=== PATIENT | female | born 1955 | race Caucasian/White ===

== ENCOUNTER → 2016-07-13 | Outpatient (CLI) | payer BC ==
[~2016-07-13] VITALS: Ht 162.6 cm; Wt 149.5 kg
[~2016-07-13] MED LIST: CALCIFEROL50000 IU PO; CALCIUM + D 5001 TAB PO; CENA K20 MEQ/15 PO; DRISDOL50000 IU PO; FERROUS FUMARA325 MG PO; FLEXERIL10 MG PO; IRON FERROUS S325 MG PO; LISINOPRIL; LORTAB 5/500 501 TAB PO; NAPROSYN PO; NO HOME MEDICATIONS; PHENTERMINE15 MG PO; POTASSIUM PO; PRILOSEC40 MG PO; PRINZIDE 12.5 M1 TA1 PO; VITAMIN D 50,1.25 MG PO; VITAMIN D1000 IU PO; VITAMIN D50000 IU PO; WELLBUTRIN SR150 M1 PO; ZOLOFT 50MG50 MG; ZOLOFT 50MG50 MG PO
== END ==
LOC: LIGHT 10:23
DX: E66.8 Other obesity (principal); E88.81 Metabolic syndrome and other insulin resistance; G47.33 Obstructive sleep apnea (adult) (pediatric); F33.8 Other recurrent depressive disorders; E66.01 Morbid (severe) obesity due to excess calories; Z68.41 Body mass index [BMI] 40.0-44.9, adult

== ENCOUNTER → 2016-08-17 | Outpatient (CLI) | payer BC ==
[~2016-08-17] VITALS: Ht 162.6 cm; Wt 145.6 kg
[2016-08-17 09:30] VITALS: BP 134/60; PULSE 57
== END ==
LOC: LIGHT 08:25
DX: E88.81 Metabolic syndrome and other insulin resistance (principal); G47.33 Obstructive sleep apnea (adult) (pediatric); F33.8 Other recurrent depressive disorders; E66.01 Morbid (severe) obesity due to excess calories; Z68.43 Body mass index [BMI] 50.0-59.9, adult

== ENCOUNTER → 2016-10-12 | Outpatient (CLI) | payer BC ==
[~2016-10-12] VITALS: Ht 162.6 cm; Wt 141.7 kg
[2016-10-12 08:40] VITALS: BP 117/67; PULSE 68
== END ==
LOC: LIGHT 08:40
DX: E88.81 Metabolic syndrome and other insulin resistance (principal); E66.01 Morbid (severe) obesity due to excess calories; Z68.43 Body mass index [BMI] 50.0-59.9, adult; Z71.3 Dietary counseling and surveillance; F33.9 Major depressive disorder, recurrent, unspecified; G47.33 Obstructive sleep apnea (adult) (pediatric)

== ENCOUNTER → 2017-02-01 | Outpatient (CLI) | payer BC ==
[~2017-02-01] VITALS: Ht 162.6 cm; Wt 144.5 kg
[~2017-02-01] MED LIST changes: +FASTIN30 MG PO; -PHENTERMINE15 MG PO
[2017-02-01 09:38] VITALS: BP 120/80; PULSE 68
== END ==
LOC: LIGHT 12-21 10:15
DX: E88.81 Metabolic syndrome and other insulin resistance (principal); G47.33 Obstructive sleep apnea (adult) (pediatric); E66.01 Morbid (severe) obesity due to excess calories; Z68.43 Body mass index [BMI] 50.0-59.9, adult; Z71.3 Dietary counseling and surveillance; F33.9 Major depressive disorder, recurrent, unspecified

== ENCOUNTER → 2017-04-02 | Outpatient (CLI) | payer BC | LOC: MC.RAD 09:30 | DX: Z12.31 Encounter for screening mammogram for malignant neoplasm of breast (principal) ==

== ENCOUNTER → 2017-06-05 | Outpatient (CLI) | payer BC | LOC: COL.RAD 10:39 | DX: R93.8 Abnormal findings on diagnostic imaging of other specified body structures (principal) ==

== ENCOUNTER 2017-07-03 08:08 | Emergency (ER) | payer BC ==
[2005-10-05 15:49] VITALS: BP 117/87
[~2017-07-03] VITALS: Ht 162.6 cm; Wt 136.8 kg
[2017-07-03] MEDS ORDERED: MOTRIN 600600 MG/TAB PO (08:28)
[2017-07-03 08:56] LABS: BASO % 0.4 % (0.0-2.0); EOS # 0.3 (0.0-0.7); EOS % 5.3 % (0-4.0); GRAN # 3.7 (1.4-6.5); GRAN % 69.2 % (42.2-75.2); LYMPH # 0.9 (1.2-3.4); LYMPH % 16.6 % (20.0-51.0); MEAN CELL VOLUME 93 fl (80.0-100.0); MEAN CORPUSCULAR HEMOGLOBIN 31 pg (27.0-31.0); MEAN CORPUSCULAR HGB CONC 33 g/dl (33.0-37.0); MEAN PLATELET VOLUME 9.3 fl (7.4-10.4); MONO # 0.4 (0.1-0.6); MONO % 7.9 % (1.7-9.3); PLATELET COUNT 246 K/mm3 (130-400); RED BLOOD COUNT 3.87 M/mm3 (4.10-5.30); REDCELL DISTRIBUTION WIDTH-CV 12.5 % (11.5-14.5)
[2017-07-03 09:00] LABS: HEMATOCRIT 35.9 % (37.0-47.0)
[2017-07-03 09:04] LABS: ALANINE AMINOTRANSFERASE 36 U/L (9-52); ALBUMIN 3.7 gm/dL (3.5-5.0); ALKALINE PHOSPHATASE 76 U/L (50-136); ANION GAP 7 mmol/L (7-16); AST,SGOT 21 U/L (15-37); BILIRUBIN,TOTAL 0.4 mg/dL (0.0-1.0); BLOOD UREA NITROGEN 10 mg/dL (7-17); CALCIUM 8.7 mg/dL (8.4-10.2); CARBON DIOXIDE 30 mmol/L (22-30); CHLORIDE 102 mmol/L (98-107); CREATININE, serum 0.71 mg/dL (0.52-1.25); GLUCOSE 90 mg/dL (74-106); POTASSIUM 3.5 mmol/L (3.4-5.0); SODIUM 140 mmol/L (137-145); TOTAL PROTEIN 6.8 gm/dL (6.4-8.2)
[2017-07-03 09:18] LABS: TROPONIN-I < 0.012 ng/mL (0.000-0.034)
[2017-07-03] MEDS ORDERED: DOXYCYCLINE HY100 MG PO (09:59)
[2017-07-03 10:21] VITALS: BP 151/86; PULSE 61; TEMP 97.7
== END 2017-07-03 10:20 | disposition home or self-care (01) ==
LOC: COL.ER 08:08
PROVIDERS: Emergency Medicine
DX: J18.9 Pneumonia, unspecified organism (principal); I10 Essential (primary) hypertension; F32.9 Major depressive disorder, single episode, unspecified; E66.01 Morbid (severe) obesity due to excess calories; Z68.43 Body mass index [BMI] 50.0-59.9, adult; Z87.891 Personal history of nicotine dependence
CPT/HCPCS: Q9967

== ENCOUNTER → 2017-08-02 | Outpatient (CLI) | payer BC ==
[~2017-08-02] VITALS: Ht 315 cm; Wt 154.7 kg
[~2017-08-02] MED LIST changes: +DOXYCYCLINE HY100 MG PO; +MOTRIN 600600 MG/TAB PO
[2017-08-02 11:55] VITALS: BP 110/80; PULSE 84
== END ==
LOC: LIGHT 11:15
DX: E88.81 Metabolic syndrome and other insulin resistance (principal); G47.33 Obstructive sleep apnea (adult) (pediatric); E66.01 Morbid (severe) obesity due to excess calories; Z68.43 Body mass index [BMI] 50.0-59.9, adult; Z71.3 Dietary counseling and surveillance; F33.9 Major depressive disorder, recurrent, unspecified
CPT/HCPCS: G0463

== ENCOUNTER → 2017-08-30 | Outpatient (CLI) | payer BC ==
[~2017-08-30] VITALS: Ht 167.6 cm; Wt 152.2 kg
[2017-08-30 10:57] VITALS: BP 124/82; PULSE 68
== END ==
LOC: LIGHT 10:45
DX: E88.81 Metabolic syndrome and other insulin resistance (principal); G47.33 Obstructive sleep apnea (adult) (pediatric); E66.01 Morbid (severe) obesity due to excess calories; Z68.43 Body mass index [BMI] 50.0-59.9, adult; Z71.3 Dietary counseling and surveillance; F33.9 Major depressive disorder, recurrent, unspecified
CPT/HCPCS: G0463

== ENCOUNTER → 2017-10-25 | Outpatient (CLI) | payer BC ==
[~2017-10-25] VITALS: Ht 167.6 cm; Wt 151.7 kg
[2017-10-25 11:34] VITALS: BP 120/84; PULSE 76
== END ==
LOC: LIGHT 10:40
DX: E88.1 Lipodystrophy, not elsewhere classified (principal); G47.33 Obstructive sleep apnea (adult) (pediatric); E66.01 Morbid (severe) obesity due to excess calories; Z68.43 Body mass index [BMI] 50.0-59.9, adult; Z71.3 Dietary counseling and surveillance; F33.9 Major depressive disorder, recurrent, unspecified
CPT/HCPCS: G0463

== ENCOUNTER → 2017-11-01 | Outpatient (CLI) | payer BC | LOC: COL.RAD 13:49 | DX: R22.41 Localized swelling, mass and lump, right lower limb (principal) ==

== ENCOUNTER → 2018-01-10 | Outpatient (CLI) | payer BC ==
[~2018-01-10] VITALS: Ht 167.6 cm; Wt 155.8 kg
[2018-01-10 09:54] VITALS: BP 136/76; PULSE 72
== END ==
LOC: LIGHT 12-27 08:09
DX: E88.81 Metabolic syndrome and other insulin resistance (principal); G47.33 Obstructive sleep apnea (adult) (pediatric); F32.9 Major depressive disorder, single episode, unspecified; E66.01 Morbid (severe) obesity due to excess calories; Z68.42 Body mass index [BMI] 45.0-49.9, adult; Z71.3 Dietary counseling and surveillance
CPT/HCPCS: G0463

== ENCOUNTER → 2018-02-14 | Outpatient (CLI) | payer BC ==
[~2018-02-14] VITALS: Ht 167.6 cm; Wt 151.0 kg
[2018-02-14 09:07] VITALS: BP 112/80; PULSE 60
== END ==
LOC: LIGHT 01-31 11:22
DX: E88.81 Metabolic syndrome and other insulin resistance (principal); G47.33 Obstructive sleep apnea (adult) (pediatric); F32.9 Major depressive disorder, single episode, unspecified; E66.01 Morbid (severe) obesity due to excess calories; Z68.43 Body mass index [BMI] 50.0-59.9, adult; Z71.3 Dietary counseling and surveillance
CPT/HCPCS: G0463

== ENCOUNTER → 2019-04-14 | Outpatient (CLI) | payer BC | LOC: MC.RAD 10:30 | DX: Z12.31 Encounter for screening mammogram for malignant neoplasm of breast (principal) ==

== ENCOUNTER → 2019-06-17 | Outpatient (CLI) | payer BC ==
[~2019-06-17] VITALS: Ht 162.6 cm; Wt 156.6 kg
[~2019-06-17] MED LIST changes: +ASPIRIN E.C. 8181 MG PO; +ZOLOFT 100MG100 MG PO
[2019-06-18 11:35] VITALS: BP 145/84; PULSE 71
[2019-06-18 12:00] VITALS: BP 109/57; PULSE 75
[2019-06-18 12:01] VITALS: BP 112/57; PULSE 72
[2019-06-18 12:02] VITALS: BP 109/39; PULSE 73
[2019-06-18 12:03] VITALS: BP 125/64; PULSE 68
== END ==
LOC: COL.CARD 06-11 10:45
DX: I20.9 Angina pectoris, unspecified (principal)
CPT/HCPCS: A9500; J2785

== ENCOUNTER → 2020-04-16 | Outpatient (CLI) | payer BC | LOC: MC.RAD 07:43 | DX: Z12.31 Encounter for screening mammogram for malignant neoplasm of breast (principal) ==

== ENCOUNTER → 2021-05-26 | Outpatient (CLI) | payer BC | LOC: MC.RAD 07:57 | DX: Z12.31 Encounter for screening mammogram for malignant neoplasm of breast (principal) ==

== ENCOUNTER → 2022-06-22 | Outpatient (CLI) | payer MEDICARE, BC | LOC: MC.RAD 08:31 | DX: Z12.31 Encounter for screening mammogram for malignant neoplasm of breast (principal) ==